=== PATIENT | female | born 1965 | race African-American/Black ===

== ENCOUNTER → 2016-09-22 | Outpatient (CLI) | payer MEDICARE, MEDICAID | END | disposition home or self-care (01) | LOC: RAD 10:07 | DX: M17.11 Unilateral primary osteoarthritis, right knee (principal); R26.9 Unspecified abnormalities of gait and mobility; M23.91 Unspecified internal derangement of right knee | CPT/HCPCS: 73560 ==

== ENCOUNTER → 2018-01-06 | Outpatient (CLI) | payer MEDICARE, MEDICAID | END | disposition home or self-care (01) | LOC: MRI 09:44 | PROVIDERS: ATTEND Internal Medicine Rheumatology | DX: M48.02 Spinal stenosis, cervical region (principal) | CPT/HCPCS: 72141 ==

== ENCOUNTER → 2018-01-27 | Outpatient (CLI) | payer MEDICARE, MEDICAID | END | disposition home or self-care (01) | LOC: MRI 09:48 | PROVIDERS: ATTEND Neurological Surgery | DX: M48.02 Spinal stenosis, cervical region (principal) | CPT/HCPCS: 72141 ==